=== PATIENT | male | born 2000 | race Caucasian/White ===

== ENCOUNTER 2023-03-09 14:01 | Outpatient (REF) | payer BC, SELFPAY ==
--- NOTE | ~2023-03-09 | XR_ITS ---
EXAMINATION: XR FOREARM, LEFT CLINICAL INFORMATION: Pain and swelling. Trauma. COMPARISON: None available. TECHNIQUE: AP and lateral views of the left forearm were obtained. FINDINGS: Bone alignment is normal. No fracture or dislocation. Joint spaces are normal. Soft tissue swelling adjacent to the distal radial shaft. XR/XR forearm LT 2V IMPRESSION: No fracture or dislocation.
== END 2023-03-09 14:02 | disposition home or self-care (01) ==
LOC: HO.HMGCX 14:01
PROVIDERS: PCP Pediatrics; Visit Provider Physician Assistant
DX: M79.632 Pain in left forearm (principal)
CPT/HCPCS: 73090

== ENCOUNTER 2023-08-19 14:24 | Outpatient (AMB) | payer BC, SELFPAY ==
--- NOTE | 2023-08-19 14:28 | MHC.PC.OV ---
Vital Signs 08/19/23 14:30 Height 6 ft 2 in Weight 155 lb BMI 19.9 BP 108/60 Blood Pressure Location Rt brachial Position Sitting Pulse 61 Pulse Source Pulse Oximeter Pulse Oximetry (%) 97 Oxygen Delivery Method Room Air Intake Visit Reasons: NPV- requesting phy Allergies amoxicillin Allergy (Unknown, Verified 08/19/23 14:31) hives penicillin V Allergy (Unknown, Verified 08/19/23 14:31) Abdominal Pain No Known Allergies Allergy (Unverified 08/19/23 14:31) Medication List - Last Reconciled 08/19/23 by [facility] No Known Home Meds Tobacco use date assessed: 08/19/23 Dental Screening Dental Screen Date: 08/19/23 Did you have a dental visit in the last 12 months?: Yes Did you have a dental problem in the last 6 months where you did not have access to dental care?: No Was dental information given to patient?: Patient has dentist HPI NPV- requesting phy HPI Details New pt is here for a PE. Will order labs. [facility] Social History Housing: House Patient Tobacco Use Status: Never used Tobacco e-Cigarette/Vaping Use: Currently Using Current occupational status: employed Cognitive needs: No Hearing needs: No Vision needs: No Questionnaire PHQ-9 Over the last 2 weeks, how often have you been bothered by any of the following problems? 1. Little interest or pleasure in doing things: not at all 2. Feeling down, depressed, or hopeless: not at all 3. Trouble falling or staying asleep, or sleeping too much: not at all 4. Feeling tired or having little energy: not at all 5. Poor appetite or overeating: not at all 6. Feeling bad about yourself - or that you are a failure or have let yourself or your family down: several days 7. Trouble concentrating on things, such as reading the newspaper or watching television: not at all 8. Moving or speaking so slowly that other people could have noticed. Or the opposite - being so fidgety or restless that you have been moving around a lot more than usual: not at all 9. Thoughts that you would be better off or of hurting yourself in some way: not at all Total score: 1 Depression Screening Interpretation: Negative Depression Screening Done: Yes 59805 - PHQ-9 Billing: Yes Source: Developed by Drs. Max Subramanian, Aiden Doherty and colleagues, with an educational guille from [employer]. Thrive Questionnaire Date Thrive assessed: 08/19/23 I am a: Patient What is your living situation today?: I have a steady place to live Within the past 12 months, did the food you bought not last and you didn't have the money to get more?: Never true Within the past 12 months, did you worry whether your food would run out before you got money to buy more?: Never true Do you have trouble paying for medicines?: No Do you have trouble getting transportation to medical appointments?: No Do you have trouble paying your heating and electricity bill?: No Do you have trouble taking care of your child, family member or friend?: No Do you have trouble with day-to-day activities such as bathing, preparing meals, shopping, managing finances, etc.?: No Are you currently unemployed and looking for a job?: No Are you interested in more education?: No Currently or been in a relationship where the following occur: no concerns reported AUDIT C Alcohol Use Questionnaire (AUDIT-C) 1. How often do you have a drink containing alcohol?: Monthly or less 2. How many drinks containing alcohol do you have on a typical day when you are drinking?: 3 or 4 Total Score: 2 Score Reviewed/Action Taken: No DOYLE-7 AMB Questionnaire DOYLE-7 Date DOYLE - 7 assessed: 08/19/23 Source: Developed by Drs. Max Subramanian, Aiden Doherty and colleagues, with an educational guille from [employer]. DOYLE-7 Assessment Billing DOYLE-7 Assessment Tool: pt declined-do not bill Review of Systems Const Denies chills and Denies fever(s) Eyes Denies blurry vision ENT Denies vertigo, Denies dizziness and Denies sore throat Card Denies chest pain at rest, Denies chest pain with activity, Denies diaphoresis, Denies dyspnea and Denies dyspnea on exertion Resp Denies cough, Denies dyspnea, Denies dyspnea on exertion and Denies wheezing GI Denies abdominal pain, Denies melena, Denies hematochezia, Denies constipation, Denies diarrhea and Denies loose stools Denies hematuria Musc Denies numbness and Denies tingling Skin/Breast Denies lesions Neuro Denies vertigo, Denies dizziness, Denies numbness and Denies tingling Psych Denies anxiety, Denies depression, Denies homicidal ideation, Denies suicidal ideation and Denies other (substance abuse) Aller/Immun Denies wheezing Physical exam (Primary Care) Vital Signs: Last Vital Signs Pulse 61 08/19/23 14:30 BP 108/60 08/19/23 14:30 Pulse Ox 97 08/19/23 14:30 Oxygen Delivery Method Room Air 08/19/23 14:30 BMI result Body Mass Index 19.9 Tobacco/Smoking Status: Tobacco use Status Tobacco use date assessed 08/19/23 08/19/23 14:36 Patient Tobacco Use Status Never used Tobacco 08/19/23 14:30 e-Cigarette/Vaping Use Currently Using 08/19/23 14:36 PHQ-9: PHQ-9 Score PHQ-9: Total score 1 08/19/23 14:51 Depression Screening Interpretation: Negative Thrive Assessment: Date of Thrive Assessment Date Thrive assessed 08/19/23 08/19/23 14:36 Currently or been in a relationship where the following occur: no concerns reported Const General: cooperative Nutritional Appearance: well nourished Orientation/consciousness: patient oriented x3 HENMT Head: Yes normal to inspection, Yes normocephalic and Yes atraumatic Ears: TM's normal bilaterally Eyes General: appearance normal, both eyes and all related structures Alignment and Position: alignment normal and position normal Neck Neck: Yes normal visual inspection and Yes no lymphadenopathy Thyroid: Thyroid normal Resp Effort & Inspection: normal respiratory effort Auscultation: clear to auscultation bilaterally Cardio Rate: regular rate Rhythm: regular rhythm Heart sounds: S1 normal heart sound present, S2 normal heart sound present and no murmurs GI Palpation (GI): Soft to palpation and nontender Auscultation: normal bowel sounds Male General Exam: Yes normal external exam Penis: normal penis Scrotum: scrotum normal, testes descended bilaterally and no inguinal hernias Testes: no testicular mass Skin Rashes: no rashes Neuro General: patient oriented x3, moves all extremities, no focal motor deficits and deep tendon reflexes 2+ bilaterally Romberg Test: Negative Psych Appearance: grossly normal Mental Status: mental status grossly normal Speech and movement: Normal speech and movement present Affect: normal affect Attitude: cooperative Thought process: Normal thought process present Thought content: Normal thought content present Insight: Good insight present (Psych) Judgement: Good judgement present (Psych) Assessment and Plan Assessment & Plan (1) Physical exam: Code(s): Z00.00 - Encounter for general adult medical examination without abnormal findings Plan: Labs ordered Plan The patient agreed to the use of a certified medical aide for this encounter. Scribed for STEPHANIE Musa by Marcia Lynch certified medical aide, on 08/19/2023 at 14:50 EST Orders: Orders Complete Blood Count Auto Diff Today Z00.00 - Encounter for general adult medical examination without abnormal findings TSH reflex Free T4 Today Z00.00 - Encounter for general adult medical examination without abnormal findings Lipid Panel Today Z00.00 - Encounter for general adult medical examination without abnormal findings Comprehensive [place]. Panel Fast Today Z00.00 - Encounter for general adult medical examination without abnormal findings UA CC w/rflx Micro + Cult Today Z00.00 - Encounter for general adult medical examination without abnormal findings Coding Level of Care Code New Pt Prev Care 18-39yr([id number] Diagnoses Physical exam Z00.00
[2023-08-19 14:30] VITALS: BP 108/60; PULSE 61; O2SAT 97; BMI 19.9
== END 2023-08-19 15:00 | disposition home or self-care (01) ==
PROVIDERS: Visit Provider Nurse Practitioner Family
DX: Z00.00 Encounter for general adult medical examination without abnormal findings (principal)
CPT/HCPCS: 99385

== ENCOUNTER 2024-03-31 22:29 | Emergency (ER) | payer BC, SELFPAY ==
--- NOTE | ~2024-03-31 | CT_ITS ---
EXAMINATION: CT HEAD WITHOUT CONTRAST CT FACIAL BONES WITHOUT CONTRAST CT CERVICAL SPINE WITHOUT CONTRAST CLINICAL INFORMATION: Status post fall with facial trauma COMPARISON: CT head from January 2019 TECHNIQUE: Imaging was performed from the skull base to vertex without intravenous administration of contrast. In addition, helical noncontrast CT imaging was acquired through the cervical spine and facial bones and source images were reviewed along with axial reconstructions and sagittal and coronal MPRs. This CT examination was performed using dose optimization techniques as appropriate, variously including the following: *Automated exposure control. *Adjustment of mA and/or kV according to patient size (this includes techniques or standardized protocols for targeted exams where dose is matched to indication/reason for exam; i.e. extremities or head). *Use of iterative reconstruction technique. DLP: 654 mGy-cm FINDINGS: Head: There is no evidence of acute intracranial hemorrhage or edematous territorial infarction. [place]-white matter differentiation is preserved. There is no abnormal attenuation within the brain parenchyma. The ventricles are normal in morphology and size. No evidence for obstructive hydrocephalus. No abnormal mass effect or midline shift. No extra-axial fluid collections. No acute soft tissue or osseous abnormalities. Maxillofacial Bones: No evidence of maxillofacial bone fractures. The zygomatic arches remain intact. No nasal bone fracture. The nasal septum remains midline. No evidence of mandibular or maxillary fracture. The mandibular condyles remain well-seated in their respective temporal articular grooves. Normal appearance of the intraconal and extraconal fat. No evidence of traumatic injury to the extraocular musculature or globes. Visualized paranasal sinuses revealed mucosal thickening and mucous retention of cysts in the in the left frontal sinus, right maxillary sinus, mucosal thickening left maxillary sinus, mild mucosal thickening of right sphenoidal sinus, and ethmoidal sinuses are well aerated. Osteomeatal complexes are patent. There is no deviation of nasal septum. The mastoid air cells are clear. Cervical Spine: The atlantooccipital and atlantoaxial articulations remain well aligned. Straightening of the normal cervical lordosis. Otherwise, there is anatomic alignment of the vertebral bodies and posterior elements. No evidence of acute fracture or subluxation. The vertebral body heights and disc spaces are maintained. There is no prevertebral soft tissue swelling. The thyroid gland and revealed atrophy or surgical reduction of left thyroid lobe. The right thyroid lobe and isthmus are unremarkable. The lung apices demonstrate no abnormalities. CT/CT cervical spine wo IV con IMPRESSION: No acute intracranial, maxillofacial bone, or cervical abnormalities.
[2024-03-31 23:28] VITALS: BP 113/65; PULSE 71; RESP 16; TEMP 36.7; O2SAT 99; BMI 19.8
[2024-04-01 04:33] VITALS: BP 120/68; PULSE 51; RESP 16; TEMP 36.9; O2SAT 98
[2024-04-01 06:03] VITALS: BP 113/60; PULSE 50; RESP 18; TEMP 37.2; O2SAT 98
--- NOTE | 2024-04-01 07:40 | ED.WOUNDLAC ---
HPI - Wound/Laceration General Chief Complaint: Wound/Laceration Stated Complaint: fell hit head and chin/laceration Time Seen by Provider: 04/01/24 06:44 Source: patient Mode of arrival: ambulatory Limitations: no limitations History of Present Illness ED Provider: Diane CASTILLO HPI narrative: 23-year-old male presents status post trip and fall while playing hockey last night, patient reports he was playing, he tripped, falling forward and hitting his chin, therefore obtaining a lack on his chin. He reports when he hit his head he did not lose consciousness. He just noted that he started bleeding from his chin. He immediately came here. Since then has been having a diffuse headache without visual disturbances, dizziness or weakness. He is not on blood thinners. Denies chest pain, shortness of breath, tooth pain, nausea, vomiting, abdominal pain, vision changes, dizziness, weakness. Related Data Home Medications ?Medication ?Instructions ?Recorded ?Confirmed No Known Home Meds 08/19/23 08/19/23 Allergies Allergy/AdvReac Type Severity Reaction Status Date / Time amoxicillin Allergy Unknown hives Verified 03/31/24 23:36 penicillin V Allergy Unknown Abdominal Verified 03/31/24 23:36 Pain No Known Allergies Allergy Unverified 08/19/23 14:31 Review of Systems Review of Systems: Yes all other systems are reviewed and are negative PMFSH Past Medical History Attestation statement: The following information was validated with the patient. Source: old records reviewed and nursing notes reviewed Social History Social History Housing: House Alcohol intake: unknown Patient Tobacco Use Status: Never used Tobacco Smoked in Last 30 Days: No e-Cigarette/Vaping Use: Currently Using Use of substances other than those prescribed or required for medical reasons: No Advance Directives: No Advance Directives Information Provided: Yes Do you have a plan to hurt others: No Plan Current occupational status: employed Cognitive needs: No Hearing needs: No Vision needs: No Physical Exam Vital Signs: Vital Signs: Last Vital Signs Temp 98.9 F 04/01/24 09:05 Pulse 50 04/01/24 09:05 Resp 18 04/01/24 09:05 BP 113/60 04/01/24 09:05 Pulse Ox 98 04/01/24 09:05 O2 Del Method Room Air 04/01/24 04:33 BMI result Body Mass Index 19.8 vss Appearance: Alert.? Oriented X3.? No acute distress.? Head: Normocephalic, , no step-offs . Chin does have an irregularly shaped laceration measuring approximately 3 cm. No exposed bone. Normal mastication no pain with palpation of TMJ. Teeeth intact Eyes: Pupils equal, round and reactive to light.? Neck: Normal inspection.? Neck supple.? CVS: Normal heart rate and rhythm.? Pulses normal.? Respiratory: No respiratory distress.? Breath sounds normal.? Abdomen: Soft and nontender.? Skin: Skin warm and dry.? Normal skin color.? Normal skin turgor.? Extremities: No lower extremity edema.? No calf ttp. 5/5 strength to bilateral upper and lower extremities Back: No midline tenderness, no C-spine tenderness, full range of motion, no CVA tenderness bilaterally Neuro: Oriented X 3.? No motor deficit.? No sensory deficit. CN 2-12 intact . Ambulating with steady gait normal coordination. Normal [id number], [id number]. Negative Romberg and pronator drift. GCS-15 NIHSS-0 Course Reevaluation(s) Reevaluation #1: Three, 5-0 non dissolvable sutures placed after verbal consent was obtained. Prior to procedure anesthesized w/ 1 % lido, irrigated area well with saline then cleaned w/ iodine. Patient tolerated procedure well and wound edges approximated well. CT scans pending due to mechanism of injury then patient to be dc home w/ concussion instructions and strict follow up. Time: 07:44 Medications Administered Discontinued Medications Generic Name Dose Route Start Last Admin Trade Name Pauloq PRN Reason Stop Dose Admin Acetaminophen 650 mg 04/01/24 07:18 04/01/24 07:41 Acetaminophen 325 Mg Tablet PO 04/01/24 07:19 650 mg ONCE ONE Administration Diphtheria/Tetanus/Acell Pertussis 0.5 ml 04/01/24 07:18 04/01/24 07:42 Diphth,Pertus(Acell),Tet Adult 0.5 Ml Syringe IM 04/01/24 07:19 0.5 ml .ONCE ONE Administration Lidocaine HCl 5 ml 04/01/24 07:40 04/01/24 07:41 Lidocaine Hcl 1 % 20 Ml Vial SUBCUT 04/01/24 07:41 5 ml ONCE ONE Administration Medical Decision Making Medical Decision Making [facility] Narrative: 0741 23 yo m presents s/p fall while playing hockey w/ subsequent chin lac, headache occured last night PE Normocephalic, , no step-offs . Chin does have an irregularly shaped laceration measuring approximately 3 cm. No exposed bone. Normal mastication no pain with palpation of TMJ. Teeeth intact Chin lack likely secondary to trauma no signs of foreign body within laceration, unlikely fracture dislocation of chin. Facial bones appear to be intact. No signs of infection. Headache likely concussion from injury. Unlikely intracranial hemorrhage, stroke, posterior stroke. No signs of skull fracture. No signs of dental trauma. Plan will repair laceration with sutures. Differential Diagnosis Differential Diagnoses: The differential diagnosis associated with the presentation includes Chin lack likely secondary to trauma no signs of foreign body within laceration, unlikely fracture dislocation of chin. Facial bones appear to be intact. No signs of infection. Headache likely concussion from injury. Unlikely intracranial hemorrhage, stroke, posterior stroke. No signs of skull fracture. No signs of dental trauma. Admission/Observation Consideration of admission/observation: Escalation of care including admission/observation considered considered not indicated at this time Independent Interpretation I performed an independent interpretation of an: CT Scan Radiology Impression Discussion of test interpretation with radiology: I have reviewed the radiologist's reading. Discharge Plan Discharge Clinical Impression: Laceration, Fall, Chin injury, Concussion Patient Disposition: Home, Self-Care Instructions: Concussion (ED), Post Concussion Syndrome (ED) Additional Instructions: Take your medications as prescribed. If you were prescribed antibiotics today, it is important that you take your medication to their entirety, do not skip any doses, do not finish them early. Follow-up with your primary care provider this week. Return to the emergency department with new or worsening symptoms. In case of emergency call 911 Return in 5 days for suture removal Prescriptions: No Action No Known Home Meds Referrals: Himanshu Root FNP-BC [Primary Care Provider] - 2 days Stand Alone Forms: Work/School Release Interventions: ED Discharge Assessment Last Done: 04/01/24 09:05 Discharge Date/Time: 04/01/24 09:05 Print Language: [place]
[2024-04-01] MEDS: Acetaminophen 325 MG TABLET 650 MG PO (07:41)
[2024-04-01] MEDS: Lidocaine HCl 1 % 20 ML VIAL 5 ML SUBCUT (07:41)
[2024-04-01] MEDS: Diphth,Pertus(ACell),Tet Adult 0.5 ML SYRINGE IM (07:42)
[2024-04-01 09:05] VITALS: BP 113/60; PULSE 50; RESP 18; TEMP 37.2; O2SAT 98
== END 2024-04-01 09:05 | disposition home or self-care (01) ==
PROVIDERS: Emergency Provider Emergency Medicine; PCP Nurse Practitioner Family
DX: S01.81XA Laceration without foreign body of other part of head, initial encounter (principal); S06.0X0A Concussion without loss of consciousness, initial encounter; W01.0XXA Fall on same level from slipping, tripping and stumbling without subsequent striking against object, initial encounter; Y93.69 Activity, other involving other sports and athletics played as a team or group; Y92.9 Unspecified place or not applicable; Y99.9 Unspecified external cause status
CPT/HCPCS: 12013; 70450; 70486; 72125; 90471; 90715; 99284